=== PATIENT | female | born 1980 | race American Indian/Alaskan Native ===

== ENCOUNTER 2021-03-22 07:15 | Inpatient (IN) | payer BC ==
[2021-03-20 10:09] LABS: Basophils % (Auto) 0.2 % (0.0-1.8); Eosinophils # (Auto) 0.1 K/mm3 (0.0-0.4); Hematocrit 41.3 % (30.3-42.9); Hemoglobin 13.2 gm/dl (10.1-14.3); Lymphocytes # (Auto) 2.6 K/mm3 (1.2-5.4); Mean Corpuscular HGB Conc 32 % (30-34); Mean Corpuscular Volume 86 fl (79-97); Monocytes # (Auto) 0.5 K/mm3 (0.0-0.8); Monocytes % (Auto) 4.7 % (0.0-7.3); Platelet Count 328 K/mm3 (140-440); Red Blood Count 4.81 M/mm3 (3.65-5.03); Red Cell Distribution Width 14.1 % (13.2-15.2)
--- NOTE | 2021-03-20 13:49 | Anesthesia Consultation ---
Anesthesia Consult and Med Hx Date of service: 03/22/21 - Airway Anesthetic Teeth Evaluation: Good ROM Head & Neck: Adequate Mental/Hyoid Distance: Adequate Mallampati Class: Class II Intubation Access Assessment: Good - Pre-Operative Health Status ASA Pre-Surgery Classification: ASA3 Proposed Anesthetic Plan: General Nerve Block: TAP - Pulmonary Hx Asthma: Yes (Last used [id number]/21. Exercise-induced/allergic) Hx Respiratory Symptoms: No (+2FS) - Cardiovascular System Hx Hypertension: Yes - Central Nervous System Hx Neuromuscular Disorder: Yes (Gout) Hx Psychiatric Problems: No - Other Systems Hx Alcohol Use: Yes (Occas) Hx Cancer: No
[2021-03-22] MEDS: LACTATED RINGERS 1,000 ML IV SCH ×3 (06:45→23:02)
[~2021-03-22 07:15] MED LIST: ACETAMINOPHEN 500 MG TAB PO ONE; CELECOXIB 200 MG CAP PO NR; MAGNESIUM OXIDE 400 MG TAB PO ONE; MIDAZOLAM 2 MG/2 ML INJ IV NR; fentaNYL 100 MCG/2 ML INJ IV ONE; methOCARBAMOL 1,000 MG in SODIUM CHLORIDE 0.9% 250ML 250 ML IV ONE
--- NOTE | 2021-03-22 07:18 | Anesthesia Day of Surgery ---
Anesthesia Day of Surgery - Day of Surgery Patient Examined: Yes Patient H&P Reviewed: Yes Patient is NPO: Yes
[2021-03-22] MEDS ORDERED: BUPIVACAINE/PF (0.25%) 2.5 MG/ML 30 ML VIAL INFILTRATI ONE (07:20)
[2021-03-22] MEDS ORDERED: dexAMETHasone 4 MG/ML VIAL ONE (07:20)
[2021-03-22] MEDS ORDERED: HYDROmorphone 1 MG/1 ML INJ IV PRN (07:30)
[2021-03-22] MEDS ORDERED: MIDAZOLAM 5 MG/5 ML INJ MDV IV ONE (07:32)
[2021-03-22] MEDS ORDERED: BUPIVACAINE/PF (0.5%) 5 MG/1 ML 30 ML VIAL INFILTRATI ONE (07:34)
[2021-03-22] MEDS ORDERED: NEOMY 40 MG/POLYMYXIN B 200,000 UNITS/ML (GU) AMPULE IR ONE ×2 (07:34→11:25)
[2021-03-22] MEDS ORDERED: LIDOCAINE MPF (2%) 20 MG/1 ML VIAL 5 ML ONE ×3 (07:49→11:46)
[2021-03-22] MEDS ORDERED: ROCURONIUM 50 MG/5 ML INJ IV ONE ×3 (07:49→12:37)
[2021-03-22] MEDS ORDERED: fentaNYL 100 MCG/2 ML INJ ONE (07:50)
[2021-03-22] MEDS ORDERED: propofoL 200 MG/20 ML VIAL IV ONE (07:50)
[2021-03-22] MEDS ORDERED: KETAMINE/STERILE WATER 50 MG/ML SYRINGE ONE (07:54)
[2021-03-22] MEDS ORDERED: ONDANSETRON 4 MG/2 ML INJ IV PRN ×2 (08:00→12:26)
[2021-03-22] MEDS ORDERED: dexAMETHasone 20 MG/5 ML VIAL ONE (08:28)
[2021-03-22] MEDS ORDERED: ONDANSETRON 4 MG/2 ML INJ ONE (08:28)
[2021-03-22] MEDS ORDERED: METHYLENE BLUE 50 MG/10 ML AMP ONE (09:22)
[2021-03-22] MEDS ORDERED: HYDROmorphone 1 MG/1 ML INJ ONE (10:21)
[2021-03-22] MEDS ORDERED: LACTATED RINGERS 1,000 ML ONE (10:23)
[2021-03-22] MEDS ORDERED: ceFAZolin/Water 2 GM/20 ML 2 GM/20 ML SYRINGE IV NR (11:00)
[2021-03-22] MEDS ORDERED: SODIUM CHLORIDE 0.9% IRR 1,500 ML BOTTLE IR ONE (11:25)
[2021-03-22] MEDS ORDERED: SODIUM CHLORIDE 0.9% IRRIG SOLN 2000 ML IR ONE (11:26)
[2021-03-22] MEDS ORDERED: GLYCOPYRROLATE 0.4 MG/2 ML INJ ONE ×2 (12:21)
[2021-03-22] MEDS ORDERED: NEOSTIGMINE 10MG/10 ML INJ MDV ONE (12:21)
[2021-03-22] MEDS ORDERED: HYDROcodone/ACETAMINOPHEN 5-325 MG TAB PO PRN (12:26)
[2021-03-22] MEDS ORDERED: PROMETHAZINE 25 MG RECT SUPP PR PRN (12:26)
[2021-03-22] MEDS ORDERED: NALOXONE 0.4 MG/1 ML INJ IV PRN ×2 (12:26→16:35)
[2021-03-22] MEDS ORDERED: METOCLOPRAMIDE 10 MG TAB PO PRN (12:26)
[2021-03-22] MEDS ORDERED: MORPHINE 2 MG/1 ML INJ IV PRN (12:26)
[2021-03-22] MEDS ORDERED: ONDANSETRON 4 MG ODT TAB PO PRN (12:26)
--- NOTE | 2021-03-22 12:43 | Post Operative Note ---
Date of procedure: 03/22/21 Pre-op diagnosis: menorrhagia, dysmenorrhea, adenomyosis Post-op diagnosis: same Findings: Patient had normal ovaries and tubes. History of tubal ligation. Posterior cul-de-sac was within normal limits with no gross evidence of endometriosis. Patient had significant scarring of the bladder to the anterior uterine wall about assisted up the uterus. The scarring was thick as well. There was no evidence of bladder injury during the case or at the end of the case. Urine remained clear throughout the case. The uterus was normal size and was retroverted but had good mobility. It was globular though indicative of adenomyosis. The uterine tissue though was either extremely friable or had very poor integrity. We had multiple issues during the case with sutures tearing and not holding into the uterine tissue. The uterine manipulator itself perforated the uterus about 20 minutes into the case. Even when we were doing a laparotomy, the uterus avulsed from the cervix without's purposely resecting it from the cervix. It just avulsed with the normal tension that we would normally apply during a hysterectomy to manipulate and visualize different aspects of the uterus. Procedure: Indication: This is a 40-year-old with chronic menorrhagia, dysmenorrhea and history suggestive of adenomyosis. Patient also with a history of 4 C-sections and a myomectomy. Patient here today for robotic total hysterectomy and bilate ral salpingectomy. This did have to be converted to an open hysterectomy and bilateral salpingectomy. Procedure: Patient was taken to the operating room and prepped and draped in the usual fashion. Attention was first turned vaginally for placement of the V care cup uterine manipulator. This was done in the usual fashion including anchoring stitches at 12:00 and 6:00 of the cervical stroma with 0 Vicryl. The large Vcare cup was chosen and the manipulator was placed successfully and without difficulty. Attention was now turned abdominally. In the left upper quadrant about 2 fingerbreadths inferior to the costal margin in the midclavicular line, an 5 mm incision was made. The 5 mm trocar was successfully placed and the placement was confirmed with the camera. Attention was now turned to the placement of the 3 robotic trocars. The 2 lower quadrant ones were about 2 cm superior and medial to the ASIS on each side. These were 8 mm ports. They were placed under direct visualization with without difficulty. The 12 mm umbilical trocar site was also placed under direct visualization successfully and without difficulty. At this point the patient was placed in steep Trendelenburg. The robot was docked to the trochars. At this point I broke scrub and proceeded to the [employer] console. First the pelvis was assessed and findings noted above. Good ureteral peristalsis was noted bilaterally both at the beginning of the case and at the end of the case. At this point, the uterine manipulator was still function well without perforation and the uterus was easily mobile from anteversion to retroversion. Attention was first turned to the left adnexa where the fallopian tube was resected from its attachments using the robotic vessel sealer. This dissection was carried to the round ligament. The ovarian ligament was also clamped cauterized and resected with the vessel sealer. The round ligament was also clamped cauterized and cut with the vessel sealer. Good hemostasis was noted. This was then done in the exact same fashion on the right side with equal success and good hemostasis. At this point attention was turned the bladder flap. Because of her prior s urgeries and her significant scarring of the bladder to the uterus, we retrograde filled the bladder to clearly delineate the bladder margin. Once that was done, the bladder flap dissection with EndoShears was done. At this point, the uterine manipulator perforated through the anterior wall of the uterus. Mild bleeding was noted from the site. At this point, uterine manipulation was much more difficult. We attempted to move the manipulator and the uterine tissue could not hold it again. Laparoscopic suture was attempted with 0 Vicryl. Deep stitches were thrown into the defect to reapproximate it and the suture tore through the uterine tissue and would not hold. At this point, it was felt that the case cannot be done properly in a robotic fashion since we could not properly manipulate the uterus anymore therefore making it impossible to clearly see the colpotomy ring indentation that we would need later in the case. The poor uterine manipulation at this point also made dissecting the bladder off the anterior uterine wall much more difficult which was also needed to see the colpotomy ring. Because of a combination of all these factors, decision was made to stop the robotic portion of the procedure and convert the case to a laparotomy. Surgical team helped undock the robot and prepared for laparotomy. I scrubbed back into the case. The trochars were all removed. Pfannenstiel skin incision was then made. Incision carried down to the underlying fascia and the fascia was incised and the incision was extended bilaterally. Rectus fascia dissected off the rectus muscle both superiorly and inferiorly. Peritoneum identified tented up and entered. Peritoneal incision extended superiorly and inferiorly. At this point bowel was packed away with moist lap sponges and the pretty for retractor was placed without difficulty. At this point, attention was turned to further reducing the bladder off the lower uterine segment which was done with combination of gentle and sharp dissection. At this point, attention was turned to dissecting out and clamping the uterine arteries bilaterally. This is done bilaterally with suture ligation using 0 Vicryl. At this point further dissection of the bladder was done. It was at this point that with normal traction that was applied to the fundus of the uterus, the uterus avulsed from the cervical tissue. At this point we clamped and suture-ligated the pedicles on each side with 0 Vicryl. Then we amputated a small portion of excess cervical tissue. At this point, further dissection the bladder down the cervix was done. At this point the cardinal and uterosacral ligaments were able to be clamped and suture ligated with 0 Vicryl. At this point, the uterovaginal junction was able to be identified and the cervix was able to be excised from the vagina. The vaginal cuff was then reapproximated using 0 Vicryl in the usual fashion. A couple of additional stitches were required at the cuff and then good hemostasis noted. At this point I performed a vaginal exam from below just to confirm good integrity of the vaginal cuff since her uterine tissue integrity was so poor. Good vaginal cuff integrity was noted with no evidence of any defects or bleeding at that point. We also retrograde fill the bladder again at this point just to confirm that no injury had occurred. The bladder filled without difficulty with no evidence of any leaking. There was also no blood in the catheter. At this point good hemostasis was noted throughout. The Moris retractor and lap sponges were all removed. The rectus fascia was reapproximated 0 Vicryl in a running fashion. Subcutaneous tissue was irrigated and reapproximated 2-0 Vicryl running fashion. Skin was closed with 4-0 Vicryl subcuticular fashion followed by Dermabond. At this point tension was turned the umbilical trocar site. The fascia was identified and reapproximated with 0 Vicryl in a [id number] fashion. The skin was then closed with 4-0 Vicryl in a subcuticular fashion. Attention was then turned to the other 3 trochars site, were closed using 4-0 Vicryl in a subcuticular fashion. The procedure was concluded at this point. Patient tolerated the procedure well. All instrument lap counts were correct. Patient taken to the recovery room in stable condition. Anesthesia: LEONARDA Surgeon: CHAVEZ MELÉNDEZ Plant Controller: STEFANIA ANDRADE Estimated blood loss: other (500cc) Pathology: list (uterus, cervix, tubes) Specimen disposition: to lab Condition: stable Disposition: PACU
[2021-03-22] MEDS ORDERED: ACETAMINOPHEN 325 MG TAB PO SCH (13:00)
[2021-03-22] MEDS: HYDROmorphone 1 MG/1 ML INJ IV PRN ×2 (13:10→13:20)
--- NOTE | 2021-03-22 13:37 | Post Anesthesia Evaluation ---
- Post Anesthesia Evaluation Patient Participated: Yes Airway Patent: Yes Stable Respiratory Function: Yes Nausea/Vomiting: No Temp > 96.8F: Yes Pain Manageable: Yes Adequeate Hydration: Yes Anesthesia Complications: No Block Receding Appropriately: Not Applicable Patient on Ventilator: No
[2021-03-22] MEDS ORDERED: IBUPROFEN 800 MG TAB PO SCH (14:00)
[2021-03-22] MEDS: MORPHINE 4 MG/1 ML INJ IV PRN ×2 (15:22→17:23)
[2021-03-22] MEDS ORDERED: KETOROLAC 30 MG/1 ML INJ IV PRN (16:34)
[2021-03-22] MEDS ORDERED: HYDROmorphone/NS 6 MG/30 ML PCA INJ IV SCH (17:00)
[2021-03-23] MEDS: MAGNESIUM HYDROXIDE (MOM) ORAL LIQD UDC PO PRN ×3 (02:49→13:21)
[2021-03-23 05:27] LABS: Hemoglobin 11.2 gm/dl (10.1-14.3)
[2021-03-23 06:03] LABS: BUN/Creatinine Ratio 11; Blood Urea Nitrogen 9 mg/dL (7-17); Calcium 8.7 mg/dL (8.4-10.2); Hemolysis Index 3
--- NOTE | 2021-03-23 06:16 | Progress Note ---
Subjective - Subjective Date of service: 03/23/21 Interval history: SP DECLAN POD#1 Plan for today: DC [employer] ambulate DC gray advance diet as tolerated Postop Hb 11 Stable continue routine postop care Dayami Kennedy MD Patient reports: pain well controlled Objective - Vital Signs Latest vital signs: Vital Signs Temp Pulse Resp BP BP Pulse Ox 03/23/21 01:04 98.1 F 70 16 138/82 100 03/23/21 00:37 12 03/22/21 23:30 12 03/22/21 23:02 12 03/22/21 22:16 98.3 F 65 16 147/87 100 03/22/21 21:30 12 03/22/21 20:30 98 03/22/21 19:30 12 03/22/21 19:00 16 03/22/21 16:26 97.8 F 79 16 160/89 100 03/22/21 15:22 16 03/22/21 14:30 97.8 F 70 18 148/78 99 03/22/21 14:00 99 03/22/21 13:39 66 14 125/77 100 03/22/21 13:24 98.1 F 76 16 126/76 100 03/22/21 13:20 15 03/22/21 13:10 16 03/22/21 13:09 73 14 119/68 100 03/22/21 13:04 72 14 119/66 100 03/22/21 12:59 72 12 110/64 100 03/22/21 12:54 97.7 F 72 16 106/74 100 03/22/21 08:27 14 03/22/21 07:52 85 85 H 139/76 100 03/22/21 07:47 70 14 126/71 100 03/22/21 07:45 14 03/22/21 07:42 70 14 123/75 100 03/22/21 07:37 64 16 130/72 100 03/22/21 07:31 80 16 141/75 97 03/22/21 07:27 18 03/22/21 07:26 78 18 138/74 100 03/22/21 06:45 18 03/22/21 06:30 98 F 78 20 137/81 99 03/22/21 06:27 98 F 78 20 137/81 99 Intake and Output 03/22/21 03/22/21 03/23/21 15:59 23:59 07:59 Intake Total 1100 879.167 180 Output Total 600 900 600 Balance 500 -20.833 -420 Intake: IV 1100 879.167 Lactated Ringers 1,000 ml 1000 879.167 @ 125 mls/hr IV DIRECT [facility] Rx#:[id number] Intake, Free Water 180 Output: Urine 600 900 600 Indwelling Catheter 900 600 Other: Total, Output Amount 900 600 Voiding Method Indwelling Catheter
[2021-03-23] MEDS: LACTATED RINGERS 1,000 ML IV SCH (08:17)
--- NOTE | 2021-03-23 14:31 | Discharge Summary ---
Providers - Providers Date of Admission: 03/22/21 12:26 Date of discharge: 03/23/21 Attending physician: STEFANIA ANDRADE MD Primary care physician: RACK CARRIER Hospitalization Hospital course: DECLAN with b/l salpingectomy DC to home on POD#1 per patient request meets d/c criteria FUP in 1 week Dayami Andrade MD Condition at discharge: Stable Disposition: 01 HOME / SELF CARE / HOMELESS Plan - Discharge Medications Prescriptions: Ibuprofen [Motrin 800 MG tab] 800 mg PO Q8H PRN #30 tablet PRN Reason: Pain , Severe (7-10) oxyCODONE /ACETAMINOPHEN [Percocet 5/325] 1 tab PO Q4HR PRN #30 tab PRN Reason: Pain , Severe (7-10) - Provider Discharge Summary Activity: no sex for 6 weeks, no heavy lifting 4 weeks Additional instructions: [] Smoking cessation referral if applicable(refer to patient education folder for contact #) [] Refer to [facility] Booklet Call your doctor immediately for: * Fever > 100.5 * Heavy vaginal bleeding ( >1 pad per hour) * Severe persistent headache * Shortness of breath * Reddened, hot, painful area to leg or breast * Drainage or odor from incision. * Keep incision clean and dry at all times and follow doctor's instructions reg arding bathing/showering - Follow up plan Follow up: PRIMARY CAREMD [Primary Care Provider] - 14 Days
[2021-03-23 17:33] VITALS: BP 135/68
== END 2021-03-23 16:25 | disposition home or self-care (01) | DRG 743 ==
LOC: OR 07:15 → OB 12:26
PROVIDERS: ADMIT Obstetrics & Gynecology; ATTEND Obstetrics & Gynecology
PROC: 0UT90ZZ Resection of Uterus, Open Approach (ICD-10-PCS; principal; 2021-03-22)
PROC: 0UT70ZZ Resection of Bilateral Fallopian Tubes, Open Approach (ICD-10-PCS; 2021-03-22)
PROC: 8E0W0CZ Robotic Assisted Procedure of Trunk Region, Open Approach (ICD-10-PCS; 2021-03-22)
DX: N80.0 Endometriosis of uterus (principal); N92.0 Excessive and frequent menstruation with regular cycle; Z20.822 Contact with and (suspected) exposure to COVID-19; Z91.040 Latex allergy status; Z88.8 Allergy status to other drugs, medicaments and biological substances; Z91.018 Allergy to other foods
CPT/HCPCS: 36415; 64450; 80048; 84703; 85014; 85018; 85025; 86850; 86900; 86901; 88307; G0378; J1100; J1170; J1885; J2250; J2270; J2405; J2704; J2710; J2800; J3010; J3490; J7050; J7120; Q9968; U0003